=== PATIENT | female | born 1945 | race Caucasian/White ===

== ENCOUNTER 2017-03-05 11:26 | Emergency (ER) | payer MEDICARE, MEDICAID ==
[~2017-03-05] VITALS: Ht 160 cm; Wt 136.4 kg
[~2017-03-05 11:26] MED LIST: ASPI81TA2 PO; ATORVASTATIN PO; CALC-858 PO; CHOL400T41 PO; COR200 PO; FURO-3 PO; IRON PO; MAGN400C PO; MET15 PO; MULT-1007 PO; OMEP20TA86 PO; POTA99TA15 PO; ProAirHFA IH; TOP100 PO; TUMS PO; TYL325 PO; WARF4TAB2 PO; ZES20T PO; [UNRECOGNIZED DRUG - CODE] PO; [UNRECOGNIZED DRUG - OTHER] PO; amlodipine PO
[2017-03-05 11:34] VITALS: BP 127/72; PULSE 82; RESP 16; O2SAT 99
[2017-03-05 12:06] LABS: BASOPHILS % (AUTO) 0.2 % (0-3); EOSINOPHILS % (AUTO) 1.4 % (0-5); MONOCYTES % (AUTO) 5.5 % (4-12); Mean Corpuscular Hemoglobin 21.7 pg (27.0-35.0); Mean Corpuscular Volume 74.9 fL (81-100); NEUTROPHILS % (AUTO) 79.9 % (40-74); Platelet Count 184 bil/L (150-400)
[2017-03-05 12:52] LABS: Magnesium 1.3 mg/dL (1.6-2.6)
[2017-03-05 13:18] VITALS: BP 115/67; PULSE 71; RESP 16; O2SAT 99
--- NOTE | 2017-03-05 13:26 | ED.REPORT ---
HPI-General Illness Date of Service Mar 05, 2017 ED Provider: William Subramanian MD Pt is a 72 year old female with a history of HTN, UT, DM and A-fib who presents to the ED for further evaluation today. Pt reports that she has open wounds on her left leg that have been present for 'a while', stable and not necessarily getting worse. There was nothing new in particular today aside from a temp of 99F taken earlier today. She denies any real associated symptoms including any worsening drainage, streaking redness, fever, chest pain, SOB, headache, vision change, hematochezia, hematuria, constipation, chills, fever, and diarrhea. The pt was referred to the ED from wound care center due to concerns that she may be febrile and septic. She denies a history of anemia. No other complaints at this time. Pt reports that she has an appointment with Dr. Rivers, surgeon on 03/10/17 to discuss plan for surgery. She states that her appointment with wound care today was to get evaluation in preparation for potential surgery. Nursing Notes Stated Complaint: LEFT UPPER THIGH POSSIBLE CELLULITIS/SEPTIC Chief Complaint: Skin Rash/Abscess Nursing Notes Reviewed: Yes Allergies: Coded Allergies: propranolol (Verified Adverse Reaction, Intermediate, Nausea, 05/22/09) Scheduled ([amlodipine]) 10 MG PO DAILY ([multi-vitaminw/iron]) 1 TAB PO BID Amiodarone-Expunged Drug, Do Not Renew! (Amiodarone-Expunged Drug, Do Not Renew! ) 200 Mg Tab 200 MG PO DAILY 1-1/2 tabs Aspirin-Expunged Drug, Do Not Renew! (Aspirin-Expunged Drug, Do Not Renew!) 81 Mg Tab 81 MG PO DAILY Atorvastatin-Expunged Drug, Do Not Renew! (Atorvastatin-Expunged Drug, Do Not Renew!) 20 Mg Tablet 20 MG PO DAILY CHOLECALCIFEROL-Expunged Drug, Do Not Renew! (VITAMIN D-Expunged Drug, Do Not Renew!) 400 Unit Tablet 2,000 UNIT PO DAILY Calcium Carb & Cit/Vitamin D3 (Calcium + D3 Er Tablet) 1 Each Tablet.er 1 EACH PO BID Calcium Carbonate-Expunged Drug, Do Not Renew (Tums Chewable-Expunged Drug, Do Not Renew!) 500 Mg Tablet 500 MG PO DAILY 1-1/2 Furosemide-Expunged Drug, Do Not Renew! (Furosemide-Expunged Drug, Do Not Renew! ) 40 Mg Tablet 40 MG PO DAILY 1-1/5 tabs Lisinopril-Expunged Drug, Do Not Renew! (Lisinopril-Expunged Drug, Do Not Renew! ) 20 Mg Tablet 20 MG PO BID Loratadine-Expunged Drug, Do Not Renew! (Loratadine-Expunged Drug, Do Not Renew! ) 1 Gm Powder 10 MG PO DAILY Magnesium Oxide (Magnesium) 400 Mg Capsule 400 MG PO TID Metoprolol Suc-Expunged Drug, Do Not Renew! (Metoprolol Suc-Expunged Drug, Do Not Renew!) 100 Mg Tab.sr.24h 50 MG PO DAILY Multivitamin (Multi-Vitamin Daily) 1 Each Tablet 1 EACH PO DAILY Omeprazole-Expunged Drug, Do Not Renew! (Omeprazole-Expunged Drug, Do Not Renew! ) 20 Mg Tablet.dr 20 MG PO DAILY POTASSIUM GLUC-Expunged Drug, Do Not Renew! (POTASSIUM-Expunged Drug, Do Not Renew!) 99 Mg Tablet 8 MEQ PO TID Psyllium-Expunged Drug, Choose New Med! (Metamucil Packet-Expunged Drug, Choose New) 1 Ea Pack 0.52 GM PO DAILY Sulfamethoxazole/Trimeth 800-160 mg (Bactrim DS 800-160 mg) 1 Each Tablet 1 TABLET PO BID Warfarin Sodium Inactive Drug Do Not Use (Coumadin Inactive Drug Do Not Use) 4 Mg Tablet 2 MG PO DAILY Scheduled PRN Acetaminophen-Expunged Drug, Do Not Renew! (Tylenol-Expunged Drug, Do Not Renew! ) 325 Mg Tablet 325-650 MG PO Q6 PRN PRN Albuterol-Expunged Drug, Do Not Renew! (Albuterol-Expunged Drug, Do Not Renew!) 200 Puff/8.5 Gm Hfa.aer.ad 200 PUFF IH Q4-6H PRN PRN General Time Seen by MD: 12:04 Chief Complaint Other (further evalulation) Hx Obtained From: Patient Arrived By: Wheelchair Sudden in Onset?: No Onset Occurred: Onset unknown Symptom Duration: Since onset Recent Healthcare: Recent doctor visit Similar Sx Previous: Yes Past Medical History Past Medical History Notes: PCP - Dr. Ruiz Wound Care - Dr. Rivers Past Medical History Oral control UT Denies history of anemia Reports: Diabetes mellitus, GERD, Hypertension Reports: Atrial fibrillation Past Surgical History Total knee Biopsy right breast Sinus Reports: Cholecystectomy, Hysterectomy Family History Reports: Diabetes mellitus Reports: Cancer Smoking History Unknown if Ever Smoker Social History Alcohol Use: Denies alcohol use Drug Use: Denies drug use Other Social History: Lives in [place] [facility] Ambulatory Status Independent Review of Systems Full Review of Systems Constitutional: Denies: Chills, Fever Respiratory: Denies: Shortness of breath Cardiovascular: Denies: Chest pain GI: Denies: Constipation, Diarrhea, Hematemesis, Hematochezia Musculoskeletal: Reports: Extremity swelling Neurologic: Denies: Headache, Vision change Complete sys rev & neg: except as marked. Physical Exam Nursing note and vitals reviewed. Constitutional: Well-developed, well-nourished. Not diaphoretic. Morbidly obese female sitting in her chair. No acute distress. Head: Normocephalic and atraumatic. Mouth/Throat: Oropharynx is clear and moist. No oropharyngeal exudate. Eyes: EOM are normal. Pupils are equal, round, and reactive to light. Neck: Supple, no tracheal deviation. Cardiovascular: Normal rate, regular rhythm. Equal and intact distal pulses throughout. Pulmonary/Chest: Effort normal and breath sounds normal. No respiratory distress. Abdominal: Soft. No distension. There is no tenderness, rebound, or guarding. Bowel sounds present. Musculoskeletal: Mild erythema to medial aspect of left knee with deep well packed approximately 2x1cm punctate wound with no active drainage. I don't appreciate any fluctuance. No streaking or stranding. I don't appreciate any excessive erythema. Firm area around the wound, however, she states it has not significantly changed from previous. Neurovascularly intact just up to the wound. Neurological: AOx3. Grossly nonfocal exam. Strength and sensation intact and equal to bilateral upper and lower extremities. Normal finger to nose testing. No pronator drift. Negative Romberg, unremarkable gait. Skin: Warm and dry, no rashes or pallor appreciated. Psychiatric: Appropriate mood and affect. Behavior appears normal. Vital Signs Vital Signs Date Time Temp Pulse Resp B/P Pulse Ox O2 Delivery O2 Flow Rate FiO2 03/05/17 18:07 36.9 74 17 135/73 99 Room Air 03/05/17 18:06 36.9 74 17 135/73 99 Room Air 03/05/17 15:35 72 16 129/73 99 Room Air 03/05/17 13:18 71 16 115/67 99 Room Air 03/05/17 11:34 36.8 82 16 127/72 99 Room Air Initial VS: Reviewed Interpretation & Diagnostics CT LOWER EXTREMITY: IMPRESSION: Cellulitis, deep soft tissue edema, no sign of rim enhancing fluid collection that would indicate abscess formation or foreign body, and no gas in the soft tissues is found. By this examination no underlying osteomyelitis is suspected. Dictated by: Sea Keen M.D. on 03/05/2017 at 17:04 Lab Results Interpretation Result Diagram: 03/05/17 1150 03/05/17 1150 Test 03/05/17 11:50 White Blood Count 10.1th/mm3 (3.8-10.1) Red Blood Count 4.15mil/mm3 (3.90-5.20) Hemoglobin 9.0g/dL (12.0-15.6) Hematocrit 31.1% (35.0-46.0) Mean Corpuscular Volume 74.9fL (81-100) Mean Corpuscular Hemoglobin 21.7pg (27.0-35.0) Mean Corpuscular Hemoglobin Concent 28.9% (32.0-37.0) Red Cell Distribution Width 17.9% (12.3-15.4) Platelet Count 184bil/L (150-400) Neutrophils (%) (Auto) 79.9% (40-74) Lymphocytes (%) (Auto) 12.7% (14-46) Monocytes (%) (Auto) 5.5% (4-12) Eosinophils (%) (Auto) 1.4% (0-5) Basophils (%) (Auto) 0.2% (0-3) Sodium Level 138mEq/L (134-144) Potassium Level 3.9mEq/L (3.5-5.2) Chloride Level 96mEq/L (97-108) Carbon Dioxide Level 28mmol/L (18-29) Blood Urea Nitrogen 9mg/dL (8-27) Creatinine 0.42mg/dL (0.57-1.00) Estimat Glomerular Filtration Rate 213mL/min (>59) Glucose Level 163mg/dL (60-99) Lactic Acid Level 0.9mmol/L (0.4-2.0) Calcium Level 8.9mg/dL (8.5-10.1) Magnesium Level 1.3mg/dL (1.6-2.6) Total Bilirubin 0.6mg/dL (0.0-1.2) Aspartate Amino Transf (AST/SGOT) 11U/L (0-50) Alanine Aminotransferase (ALT/SGPT) 7U/L (0-32) Alkaline Phosphatase 106U/L (25-165) Total Protein 7.7g/dL (6.4-8.4) Albumin 3.2g/dL (3.4-5.0) Re-Eval/Medical Decision Med Decision/Clinical Course In summary, 72-year-old female with a complex past medical history presenting for evaluation and concern of possible sepsis or worsening wound infection from wound care clinic. She has not had a fever, nor has she endorsed feeling febrile or having chills. Afebrile here, nontoxic appearing. She does have a small amount of cellulitis around the wound, however no streaking or purulent drainage appreciated. Given her history, comorbidities, and upcoming procedure , decision was made to obtain a CT scan of her leg after discussion with the wound care PATTERN GRADER SUPERVISOR. This was negative for any abscess formation or gas in the soft tissues. Upon reassessment, patient continues to feel well, no new symptoms. Laboratory studies notable for a hemoglobin of 9; last hemoglobin in the system here was in 2012, when it was normal. She is denying any dark stools or active bleeding at this time and is hemodynamically stable here. I do not see an indication for admission or transfusion at this time, however I discussed with her the importance of following up with her regular doctor in the next several days for this. White blood cell count grossly within normal limits, CMP grossly within normal limits with the exception of a magnesium of 1.3 - repleted w/ IV Mg here in the ED. Does not meet criteria for sepsis at this time. Given the above, reasonable to discharge with very careful return precautions, follow-up tomorrow. I will initiate antibiotics for cellulitis; I discussed that she will need to have her INR rechecked as well. Patient agreeable to the plan as stated, no further questions. Time of Eval: 13:44 Re-Evaluation/Progress Note: Informed pt of plan for discharge. Pt understands and agrees with plan for discharge. F/U instructions and RTER warnings given. All questions addressed. Consultation : Call Returned at: 13:53 Bulb Grader: Agrees with eval, Agrees with plan Note: Consult with Pt's computer specialist at [facility]. Discussed pt's case. Counseled Regarding: Diagnosis, Lab results, Need for follow-up, When/why to return to ED Discharge & Departure Primary Impression: Wound of lower extremity Encounter type: initial encounter Laterality: left Qualified Code: S81.802A - Unspecified open wound, left lower leg, initial encounter Additional Impressions: Anemia Anemia type: unspecified type Qualified Code: D64.9 - Anemia, unspecified Cellulitis Site of cellulitis: extremity Site of cellulitis of extremity: lower extremity Laterality: left Qualified Code: L03.116 - Cellulitis of left lower limb Disposition: Home Discharge Condition All VS Reviewed: Yes Condition: Stable Patient Instructions: Anemia (ED), Cellulitis (ED), Chronic Wound Care (ED), Chronic Wounds (ED) Additional Instructions: Thank you for allowing us to be a part of your care today. Your CT scan did not show any evidence of an abscess in your leg and your lab work was generally reassuring. However, as discussed, your hemoglobin level was low suggesting anemia, and I would like you to see your primary care doctor in the next 1-2 days to be reassessed. In addition, there may be an infection of the skin. I have started an antibiotic for this. This can affect the levels of your INR (this is the number affected by your Warfarin medication.) Please follow up with your regular doctor as per above to get your levels rechecked. In addition, please be sure to keep your appointment with the doctor that cares for your wounds. Return to the emergency department immediately if you develop fever, lightheadedness, weakness, worsening pain to the leg, drainage out of the ordinary, streaking redness around the wound that appears to be spreading, or if there is anything else of concern to you. Referrals: Tami Ruiz MD (PCP) Scribe Attestation Portions of this note were transcribed by Maisha Grajeda. I, Dr. Subramanian personally performed the history, physical exam and medical decision-making; I reviewed and confirmed the accuracy of the information in the transcribed note. Signed by: Juan Dai, 03/05/17. copies to: Tami Ruiz MD, William B MD Mar 05, 2017 13:26 Maisha Recio Mar 05, 2017 13:53
[2017-03-05] MEDS ORDERED: Magnesium Sulf 2 Gm/50mL Water 2 GM in IV Premix 1 EACH IV ONE (13:35)
[2017-03-05 15:35] VITALS: BP 129/73; PULSE 72; RESP 16; O2SAT 99
--- NOTE | 2017-03-05 17:09 | DRSVH ---
PROCEDURE: CT LOWER EXTREMITY LEFT WITH CONTRAST INDICATIONS: open wound, pain, swelling; eval abscess, air, etc TECHNIQUE: After the administration of intravenous contrast, 3 mm axial sections acquired of the thigh and knee and calf region extending into the ankle area, with coronal and sagittal reformats. For radiation do se reduction, the following was used: automated exposure control, adjustment of mA and/or kV accordi ng to patient size. COMPARISON: None. FINDINGS: Image quality: Diagnostic, somewhat compromised by large body habitus, or and mild patient motion dur ing image acquisition. Bones: Severe degenerative change at the knee joint, with a medial femoral presumed tendon transfer s taple producing some degree of metal artifact inhibiting quality soft tissue visualization exactly in that area. This, however, does not degrade the study is sufficiently to reduce its diagnostic capab ilities. Note is made of prominent soft tissue edema including edema tracking into the muscular comp artments of the thigh and calf, without abscess formation or gas in soft tissues. No osteomyelitis i s suspected. Soft tissues: Soft tissue edema is consistent with underlying cellulitis, but no gas in the soft tiss ues is found, and a focus of abscess formation is not identified. IMPRESSION: Cellulitis, deep soft tissue edema, no sign of rim enhancing fluid collection that would indicate abscess formation or foreign body, and no gas in the soft tissues is found. By this examina tion no underlying osteomyelitis is suspected. Dictated by: Sea Keen M.D. on 03/05/2017 at 17:04 Approved by: Sea Keen M.D. on 03/05/2017 at 17:08
[2017-03-05] MEDS ORDERED: SULF1TAB35 PO (17:45)
[2017-03-05 18:06] VITALS: BP 135/73; PULSE 74; RESP 17; O2SAT 99
[2017-03-05 18:07] VITALS: BP 135/73; PULSE 74; RESP 17; O2SAT 99
== END 2017-03-05 18:11 | disposition home or self-care (01) ==
LOC: SED 11:26
DX: S81.802A Unspecified open wound, left lower leg, initial encounter (principal); D64.9 Anemia, unspecified; L03.116 Cellulitis of left lower limb; X58.XXXA Exposure to other specified factors, initial encounter; Y92.9 Unspecified place or not applicable; Y93.9 Activity, unspecified; Y99.9 Unspecified external cause status; I10 Essential (primary) hypertension; I25.2 Old myocardial infarction; E11.9 Type 2 diabetes mellitus without complications; I48.91 Unspecified atrial fibrillation; K21.9 Gastro-esophageal reflux disease without esophagitis; Z88.8 Allergy status to other drugs, medicaments and biological substances; Z79.82 Long term (current) use of aspirin; Z79.01 Long term (current) use of anticoagulants
CPT/HCPCS: 36415; 73701; 80053; 83605; 83735; 85025; 87040; 96374; 99285; Q9967

== ENCOUNTER → 2017-03-31 | Day surgery (SDC) | payer MEDICARE, MEDICAID ==
[2017-03-31] VITALS (8 sets, daily range): BP systolic 110–165; BP diastolic 52–105; PULSE 66–89; RESP 14–18; O2SAT 98–100
[~2017-03-31] VITALS: Ht 160 cm; Wt 131.2 kg
[~2017-03-31] MED LIST changes: +ACET325T51 PO; +ALBU18HF INH; +ALBU8.5H2 INHALATION; +ASPI-973 PO; -ASPI81TA2 PO; +ATOR20TA PO; -ATORVASTATIN PO; +BISA10SU61 RC; +Bupivacaine-MPF 0.25% 30 mL Inj INFILTRATE ONE; -CALC-858 PO; +CETI10CA PO; +CHOL200047 PO; -CHOL400T41 PO; -COR200 PO; +DEXT1DRO8 BOTH_EYES; +DILT180T9 PO; +Dexamethasone 4 mg/mL Inj IVPUSH PRN; +Dexamethasone 4 mg/mL Inj ONE; +EPHEDrine Sulfate 50 mg/mL Inj IVPUSH PRN; +FLUT16SP NS; +FURO-129 PO; -FURO-3 PO; +GLUC1KIT IJ; +GUAI1CAP65 PO; +Glycopyrrolate 0.2 MG/ML 1mL Inj ONE; +HYDROmorphone 1 mg/mL Inj IVPUSH PRN; -IRON PO; +LOPE2CAP PO; +Lactated Ringer's 1,000 ML IV ONE; +Lactated Ringer's 1,000 ML IV SCH; +Lactated Ringer's 500 ML IV PRN; -MAGN400C PO; +MAGN400O4 PO; +MAGN400T4 PO; -MET15 PO; +METO-394 PO; -MULT-1007 PO; +MULT-1018 PO; +MYCO EXT; +NA P133E23 RC; +Neostigmine 1 mg/mL 10 mL Inj ONE; +OMEP20CA11 PO; -OMEP20TA86 PO; +ONDA4TAB6 PO; +OXYC1TAB24 PO; +OXYC5CAP4 PO; +Ondansetron 2 mg/mL 2 mL Inj IVPUSH PRN; +Ondansetron 2 mg/mL 2 mL Inj ONE; +POLY17PO6 PO; +POTA20TA7 PO; -POTA99TA15 PO; +Phenylephrine 10,000 mCg/mL Inj IVPUSH PRN; +Phenylephrine/NS 100 mCg/mL 10 mL Syringe IVPUSH ONE; -ProAirHFA IH; +Rocuronium 10 mg/mL 5 mL Inj ONE; -TOP100 PO; -TUMS PO; -TYL325 PO; +WARF2TAB PO; +WARF3TAB PO; -WARF4TAB2 PO; -ZES20T PO; -[UNRECOGNIZED DRUG - CODE] PO; -[UNRECOGNIZED DRUG - OTHER] PO; -amlodipine PO; +antacid; +fentaNYL-PF 50 mCg/mL 2 mL Inj ONE; +oxyCODONE-Acetamin 5-325 mg Tablet PO PRN
[2017-03-31 11:36] LABS: INR 1.26 ratio
--- NOTE | 2017-03-31 11:42 | PCM.HPANE ---
Patient Data Surgeon Admitting Provider: Attending Provider:Deb Rivers MD Primary Care Physician:Tami Ruiz MD Other Provider:Christen Quintanilla Anesthesia Reason for Visit Left Lower Leg Wounds Ht/WT & BMI Height (Feet): 5 Height (Inches): 3.00 Weight (Kilograms): 131.2 Body Mass Index 51.00 Allergies Coded Allergies: propranolol (Verified Adverse Reaction, Intermediate, Nausea, 05/22/09) Past Anesthesia History Anesthesia History: Denies:: Anesthesia Reactions Diabetes History Hx Diabetes?: Yes Type of Diabetes: Diet Controlled Current Bedside Blood Glucose: 144 MRSA MRSA: No Medications Blood Thinner: Coumadin Hypertension Medication: Yes Home Meds Incl Beta Sherine: Yes (Metoprolol 100mg) Date Beta Sherine Taken: Mar 31, 2017 Time Beta Sherine Taken: 0700 Reported Medications Ondansetron (Zofran)4 Mg Tablet4 Mg PO Q4H PRN For Nausea 03/26/17 Cholecalciferol (Vitamin D3) (Vitamin D3)2,000 Unit Capsule2,000 Unit PO DAILY 03/26/17 Albuterol Sulfate (Ventolin HFA Inhaler)200 Puff/18 Gm Inhaler2 Puff INH Q4 PRN For Wheezing #1 INHALER Ref 0 03/26/17 Guaifenesin/Dextromethorphan (Robitussin Fqjod-Rehje-Dzue Dm)200 Mg-10 Mg Capsule1 Each PO Q4H PRN For Congestion 03/26/17 oxyCODONE-Acetaminophen 5-325 mg 1 Each Tablet1 Tab PO Q4H PRN For Pain Ref 0 03/26/17 Omeprazole 20 Mg Capsule.dr20 Mg PO DAILY Ref 0 03/26/17 Nystatin 20 Applic/15 Gm Oint30 Applic EXT BID 03/26/17 Multivitamin (Multi Vitamin Daily)1 Each Tablet1 Each PO DAILY 30 Days Ref 0 03/26/17 Polyethylene Glycol 3350 (Miralax)17 Gm Powd.pack17 Gm PO DAILY 03/26/17 Magnesium Hydroxide (Milk of Magnesia)400 Mg/5 Ml Oral.sjwz414 Mg PO PRN For Constipation 03/26/17 Metoprolol Succinate ER 100 Mg Tab.er.86x658 Mg PO DAILY Ref 0 03/26/17 Magnesium Oxide 400 Mg Qbgsyr600 Mg PO BID 03/26/17 Loperamide 2 Mg Capsule2 Mg PO Q4H DIARREHEA 03/26/17 Furosemide (Lasix)20 Mg Pnrgrn59 Mg PO DAILY 30 Days Ref 0 03/26/17 Potassium Chloride ER (Klor-Con M20)20 Meq Zjojyo17 Meq PO DAILY Ref 0 03/26/17 Glucagon,Human Recombinant (Glucagon Emergency Kit)1 Mg Kit1 Mg IJ PRN blood glucose 03/26/17 Fluticasone Propionate (Fluticasone Propionate Nasal)16 Gm [place].susp2 [place] NS BID #16 GM Ref 0 03/26/17 Na Phos,M-B/Na Phos,Di-Ba (Fleet Enema)133 Ml Arhmx542 Ml RC PRN For Constipation 03/26/17 Bisacodyl (Dulcolax Rectal)10 Mg Supp.rect10 Mg RC DAILY PRN For Constipation 30 Days Ref 0 03/26/17 Diltiazem ER 180 Mg Tab.er.93x194 Mg PO DAILY Ref 0 03/26/17 Warfarin Sodium (Coumadin)3 Mg Tablet1.5 Mg PO Q2DAY 30 Days Ref 0 alternate with 2mg dose 03/26/17 Warfarin Sodium (Coumadin)2 Mg Tablet2 Mg PO Q2DAY 30 Days Ref 0 alternate with 1.5 mg dose 03/26/17 Cetirizine HCl (Zyrtec)10 Mg Dkqvhcy51 Mg PO HS #30 CAPSULE Ref 0 03/26/17 Atorvastatin (Lipitor)20 Mg Csdmxg09 Mg PO DAILY Ref 0 03/26/17 Aspirin 81 Mg Fmwymw35 Mg PO DAILY Ref 0 03/26/17 Dextran 70/Hypromellose/Pf (Artificial Tears Drops)1 Each Droperette1 Drop BOTH_ EYES PRN dry eyes #1 BOTTLE 03/26/17 [antacid] No Conflict Check30 Ml PRN For Indigestion 03/26/17 Albuterol HFA (Proair HFA)8.5 Gm Hfa.aer.ad2 Puffs INHALATION Q4H PRN For Shortness of Breath #1 INHALER 03/26/17 Acetaminophen 325 Mg Urzgfq721 Mg PO Q4H PRN For Pain Ref 0 03/26/17 Discontinued Reported Medications CHOLECALCIFEROL-Expunged Drug, Do Not Renew! (VITAMIN D-Expunged Drug, Do Not Renew!)400 Unit Tablet2,000 Unit PO DAILY 01/27/13 Magnesium Oxide (Magnesium)400 Mg Xbrrjwr043 Mg PO TID 01/27/13 Calcium Carbonate-Expunged Drug, Do Not Renew (Tums Chewable-Expunged Drug, Do Not Renew!)500 Mg Ggilpb848 Mg PO DAILY 1-1/2 01/27/13 Albuterol-Expunged Drug, Do Not Renew! 200 Puff/8.5 Gm Hfa.aer.ad200 Puff IH Q4- 6H PRN 01/27/13 Atorvastatin-Expunged Drug, Do Not Renew! 20 Mg Piqoas55 Mg PO DAILY 01/27/13 Furosemide-Expunged Drug, Do Not Renew! 40 Mg Ltbnku47 Mg PO DAILY 1-07/31 tabs 01/27/13 POTASSIUM GLUC-Expunged Drug, Do Not Renew! (POTASSIUM-Expunged Drug, Do Not Renew!)99 Mg Tablet8 Meq PO TID 01/27/13 Amiodarone-Expunged Drug, Do Not Renew! 200 Mg Fsq640 Mg PO DAILY 1-07/28 tabs 01/27/13 [multi-vitaminw/iron] No Conflict Check1 Tab PO BID 01/27/13 [amlodipine] No Conflict Check10 Mg PO DAILY 01/27/13 Warfarin Sodium Inactive Drug Do Not Use (Coumadin Inactive Drug Do Not Use)4 Mg Tablet2 Mg PO DAILY 01/27/13 Omeprazole-Expunged Drug, Do Not Renew! 20 Mg Tablet.dr20 Mg PO DAILY 01/27/13 Metoprolol Suc-Expunged Drug, Do Not Renew! 100 Mg Tab.sr.24h50 Mg PO DAILY 01/27/13 Lisinopril-Expunged Drug, Do Not Renew! 20 Mg Fskwzg92 Mg PO BID #60 TAB 01/27/13 Loratadine-Expunged Drug, Do Not Renew! 1 Gm Gulpmu98 Mg PO DAILY 01/27/13 Psyllium-Expunged Drug, Choose New Med! (Metamucil Packet-Expunged Drug, Choose New)1 Ea Pack0.52 Gm PO DAILY 01/27/13 Calcium Carb & Cit/Vitamin D3 (Calcium + D3 Er Tablet)1 Each Tablet.er1 Each PO BID 01/27/13 Acetaminophen-Expunged Drug, Do Not Renew! (Tylenol-Expunged Drug, Do Not Renew! )325 Mg Wkelup016-852 Mg PO Q6 PRN 01/27/13 Multivitamin (Multi-Vitamin Daily)1 Each Tablet1 Each PO DAILY 01/27/13 Aspirin-Expunged Drug, Do Not Renew! 81 Mg Tab81 Mg PO DAILY 01/27/13 Discontinued Scripts Sulfamethoxazole/Trimeth 800-160 mg (Bactrim DS 800-160 mg)1 Each Tablet1 Tablet PO BID #20 TABLET Ref 0 Prov:William Subramanian MD 03/05/17 History History of ENT Problems?: Yes HEENT History: Positive for:: Cataracts (bilat) Sinus Problem Denies:: Dysphagia Denture Type: Full- Upper Full- Lower Teeth Condition: No Teeth Hx of Heart Problems?: Yes Cardiovascular History: Positive for:: Atrial Fibrillation Chest Pain Hypertension Irregular Heartbeat (chronic a fib, occ PVC's) Denies:: Cardiac Surgery Congestive Heart Failure Edema Heart Murmur Pacemaker Thrombophlebitis Other Cardiac History: ECHO in 2013 with TR and preserved EF. Cath in 2015 with 50% stenosis PDA Hx of Respiratory Problem?: Yes Respiratory History: Positive for:: Dyspnea Denies:: Asthma COPD Chest Surgery Emphysema Hemoptysis Oxygen Administration Pneumonia Tuberculosis Use of C-PAP Machine Hx Neurologic Problems?: No Neurological History: Positive for:: Headaches (light headed with rapid heart rate) Denies:: Alzheimer's Disease CVA Dementia Dizziness Parkinson's Disease Seizures Hx of GI Problems?: Yes Hx of Problems?: Yes Genitourinary History: Denies:: Kidney Stones Urinary Tract Infection Female Hx: Denies:: Currently Endometriosis Pelvic Inflammatory Problems with Breasts? Skin History: Positive for:: History Skin Disorders? (bilateral leg wounds left leg inner thigh/calf current admit problem) Denies:: Pressure Ulcers Hx Musculoskeletal Problems?: Yes Musculoskeletal History: Positive for:: Back Injury (lower back arthritis) Joint Replacement (total right knee) Denies:: Musculoskeletal Trauma Hx of Psycho/Social Problems?: No Psycho Social History: Denies:: Anxiety Bipolar Disorder Hx Depression Hx Surgeries?: Yes (hysterectomy, total knee, endo brenna, biopsy r breast, sinus surg, ) Hx Any Other Health Problems?: Yes Other History: Positive for:: Hospitalization Thyroid Disease (goiter and polyps throat) Denies:: Cancer History Blood Transfusions: Denies:: Blood Transfusions Hx Diabetes: YesBedside Blood Glucose: 144 Hx Alcohol Use: NoHx Substance Use: No Smoking Status: Unknown if Ever Smoker Have You Smoked inLast 12 mo: No Stop/Bang P-Blood Pressure: treated: Yes B- Body Mass Index > 35 kg/m2: Yes A- Age over 50: Yes N- Neck Large Circumference: Yes G- Gender Male: No GERALDO Risk Assessment: High Risk, =/>3 Yes Risk Assessment Category Category 1A: Patient has history of documented sleep apnea, and HAS NOT received any narcotic, sedative or anesthesia administration during this stay. Category 1B: Patient has history of documented sleep apnea, and HAS received any narcotic , sedative or anesthesia administration during this stay Category 2: Patient has SUSPECTED Obstructive Sleep Apnea, and HAS received any narcotic , sedative or anesthesia administration during this stay. Category 3: Patient has SUSPECTED Obstructive Sleep Apnea and HAS NOT received narcotic, sedative or anesthesia administration during this stay. Category 4: Outpatient in Procedural Areas with known sleep apnea or who screen positive for High Risk via the STOP/BANG questionnaire. Exam Exam Vital Signs Vital Signs Date Time Temp Pulse Resp B/P Pulse Ox O2 Delivery O2 Flow Rate FiO2 03/31/17 11:02 Supplement Oxygen CPAP/BIPAP 03/31/17 11:01 36.4 89 18 133/71 98 Room Air General Appearance: Alert, Oriented X3, Cooperative, No Acute Distress HEENT/AIRWAY: MP 1 Lungs: Normal Air Movement Heart: Other (IRIR) Additional Information IRIR Meds/Labs/Diagnostics Admission Meds Current Medications Lactated Ringer's (Lr) 1,000 ml @ 120 mls/hr Q8H20M ONCE IV Last administered on 03/31/17t 10:07; Start 03/31/17 at 05:00; Stop 03/31/17 at 13:19 Bedside Blood Glucose: 144 Labs Test 03/31/17 10:57 Plan Impression Patient chart reviewed, patient interviewed and anesthestic plan with risks, benefits, and alternatives discussed, and informed consent obtained. NPO per Anesth. Guidelines: Yes ASA Physical Status: ASA3 Severe Disease Anesthetic Plan: GA Bene/Risks/Altern/Consents: Yes HP Complete Prior to Induction: Yes Randlal Lucas MD Mar 31, 2017 11:42
[2017-03-31] MEDS: fentaNYL-PF 50 mCg/mL 2 mL Inj IVPUSH PRN ×2 (14:20→14:25)
--- NOTE | 2017-03-31 14:39 | OP ---
[address] [address] OPERATIVE REPORT PATIENT: KYLAH BULL : 1945 MR#: [id number] ADMIT: 03/31/2017 JOB ID: [id number] DATE OF SURGERY: 03/31/2017 PREOPERATIVE DIAGNOSIS(ES): Left lower extremity wounds x3. 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 SURGEON: Deb Rivers M.D. PROCEDURE PERFORMED: 1. Debridement of skin, subcutaneous tissue and muscle of the left lower extremity, final wound size 21 cm in length by 7 cm in width by 3 cm in depth. 2. Curettage of left lower extremity wound of the proximal medial thigh, 4 x 3 x 0.3 cm. HISTORY OF PRESENT ILLNESS: This is a 72-year-old woman with chronic lymphedema who developed two simultaneous wounds on the left lower extremity. These required treatment with a bedside debridement and Wound VAC therapy which was being managed [facility]. However, the proximal wound became deeper and began to have purulent-appearing discharge. Therefore, she was scheduled for surgery. FINDINGS: 1. The proximal wound on the medial distal thigh had significant tunneling and a second wound had opened distal to this beyond the knee. These wounds were connected to fully exposed wound base and remove all of the nonviable tissue. This was a dirty case with chronic necrosis of adipose tissue. 2. The separate superficial wound on the medial aspect of the left calf was covered in a thin layer of fibrinous tissue with underlying healthy granulation tissue was exposed with curettage. DESCRIPTION OF PROCEDURE: The patient was brought to the operating room and placed in supine position. General anesthesia was induced. An SCD was placed on the right leg. Operative field was prepped and draped in a sterile fashion. A preprocedural pause was performed to confirm the correct patient, procedure and site. She was put into frogleg position and the two wounds were explored. There was a large chronic wound on the medial distal thigh with another opening approximately 10 cm distal to this, overlying the medial knee. As there was tunneling and devitalized tissue below this, the two wounds were connected. Nonviable skin was removed, but the majority of skin remained. There was significant purulent drainage, clear lymphatic drainage, and devitalized adipose tissue. There was also devitalized muscular tissue. All of devitalized tissue was removed primarily with blunt debridement using a lap pad. Some of it was removed sharply with scissors. There were two large veins which were ligated using 3-0 silk. Of note, these were superficial veins. Of note, 0.25% Marcaine was used for local analgesia. Once the devitalized tissue was removed, the base of the wound was covered with Adaptic to protect the previous suture sites. It was then packed with moist Kerlix. Of note, attention was turned to the wound on the proximal aspect and medial aspect of the lower leg. This measured 4 x 3 x 0.3 cm in size. It was covered with thin fibrinous tissue and curettage was applied. The underlying base was covered with pink granulation tissue. Hemostasis was achieved. This was covered with a sterile dressing. The leg was wrapped. The patient was awakened from general anesthesia and taken to postoperative care unit in good condition. SPECIMENS: None. ESTIMATED BLOOD LOSS: 100 mL. COMPLICATIONS: None.
--- NOTE | 2017-03-31 18:13 | PCM.ANEP1 ---
Post Anesthesia PACU Phase 1 Assessment Vital Signs Vital Signs Date Time Temp Pulse Resp B/P Pulse Ox O2 Delivery O2 Flow Rate FiO2 03/31/17 17:09 36.2 84 18 139/67 98 Nasal Cannula 2 03/31/17 14:50 81 17 148/63 100 Nasal Cannula 3 03/31/17 14:35 80 17 110/53 100 Nasal Cannula 3 03/31/17 14:20 75 14 135/75 98 Nasal Cannula 3 03/31/17 14:15 66 17 165/105 100 Simple Mask 10 03/31/17 14:10 73 15 151/52 100 Simple Mask 10 03/31/17 14:05 36.2 79 16 133/76 98 Simple Mask 10 03/31/17 11:02 Supplement Oxygen CPAP/BIPAP 03/31/17 11:01 36.4 89 18 133/71 98 Room Air Anesthetic Administered: GA Level of Alertness: Awake, talking Pain: No Nausea or Vomiting: No CV Function & Hydration Stable: Yes Airway Device: None Oxygen Delivery: Nasal Cannula Lungs: Normal Air Movement PACU Phase 2 Assessment Complications: No Follow up Care: N/A Patient Instructions Provided: N/A Randall Lucas MD Mar 31, 2017 18:13
== END | disposition home or self-care (01) ==
LOC: SAS 09:50
PROVIDERS: ATTEND Surgery
PROC: 0KBT0ZZ Excision of Left Lower Leg Muscle, Open Approach (ICD-10-PCS; principal; 2017-03-31 11:45)
DX: L02.416 Cutaneous abscess of left lower limb (principal); S81.802A Unspecified open wound, left lower leg, initial encounter; I89.0 Lymphedema, not elsewhere classified; Z79.01 Long term (current) use of anticoagulants; I48.2 Chronic atrial fibrillation; I10 Essential (primary) hypertension
CPT/HCPCS: 11043; 11046; 36415; 85610; 97597; J1100; J1170; J2370; J2405; J2710; J3010; J7120